=== PATIENT | female | born 1990 | race African-American/Black ===

== ENCOUNTER 2025-03-10 16:28 | Emergency (ER) | payer OTHER ==
[2025-03-10] MEDS ORDERED: Ketorolac Tromethamine 30 MG (1 mL) VIAL ONE (18:06)
== END 2025-03-10 18:03 | disposition home or self-care (01) ==
LOC: ERS 16:28
DX: M54.9 Dorsalgia, unspecified (principal)
CPT/HCPCS: 96372; 99282; J1885